=== PATIENT | male | born 1975 | race Hispanic/Latino ===

== ENCOUNTER 2021-12-04 17:24 | Emergency (ER) | payer BC, SELFPAY ==
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
[2021-12-04] MEDS: TETANUS,DIPHTHERIA,AC PERTUSSIS ADULT 0.5 ML (ADACEL) IM (18:03)
[2021-12-04 18:18] VITALS: BP 155/86; PULSE 85; RESP 20; TEMP 36.7; O2SAT 98
[2021-12-04 19:06] VITALS: BP 141/66; PULSE 79; RESP 20; TEMP 36.8; O2SAT 99
== END 2021-12-04 19:09 | disposition home or self-care (01) ==
PROVIDERS: Emergency Provider Emergency Medicine; PCP Emergency Medicine
DX: S01.01XA Laceration without foreign body of scalp, initial encounter (principal); S50.11XA Contusion of right forearm, initial encounter; V86.59XA Driver of other special all-terrain or other off-road motor vehicle injured in nontraffic accident, initial encounter
CPT/HCPCS: 12002; 12031; 70450; 70486; 73090; 90471; 90715; 99284

== ENCOUNTER 2022-05-02 10:08 | Emergency (ER) | payer BC, SELFPAY ==
--- NOTE | ~2022-05-02 | XR_ITS ---
EXAMINATION: XR ankle LT 2V DATE: 05/02/2022 10:38 INDICATION: Left ankle injury and swelling. TECHNIQUE: 4 views of left ankle were obtained. COMPARISON: None. FINDINGS: Bone alignment is normal. There is a fragment of ossification distal to lateral malleolus. 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 There is an enthesophyte at posterior aspect of calcaneal t uberosity. Ankle soft tissue swelling is noted. IMPRESSION: 1. Fragment of ossification distal to lateral malleolus, which may be an acute avulsion fracture or a finding from old injury. Reviewed, dictated and finalized at location A.
[2022-05-02 10:10] VITALS: BP 136/72; PULSE 88; RESP 16; TEMP 36.6; O2SAT 97
[2022-05-02 10:18] VITALS: BP 136/72; PULSE 88; RESP 16; TEMP 36.6; O2SAT 97
--- NOTE | 2022-05-02 10:58 | ED.LOWEXIN ---
HPI - Extremity Injury (Lower) General Chief Complaint: Extremity Injury, Lower Stated Complaint: fell on Left Ankle pain Time Seen by Provider: 05/02/22 10:10 Source: patient Mode of arrival: ambulatory Limitations: no limitations History of Present Illness HPI Narrative: this is a 38 year gentleman presents with left ankle pain with swelling in the lateral malleolus occurred earlier today causing pain and swelling has good range of motion with no numbness or tingling and rates his pain at about a 1 or 2. complaint: ankle injury Onset (ago): hour(s) Type of Injury: inversion Place: work Severity: mild Severity scale (1-10): 2 Relieving factors: nothing Exacerbating factors: nothing Related Data Home Medications Medication Instructions Recorded Confirmed lisinopril 20 mg tablet 20 mg PO DAILY 12/04/21 05/02/22 propranolol 60 mg capsule,24 60 cap PO DAILY 12/04/21 05/02/22 hr,extended release Allergies Allergy/AdvReac Type Severity Reaction Status Date / Time No Known Allergies Allergy Verified 05/02/22 10:17 Review of Systems Review of Systems: All systems reviewed & are unremarkable except as noted in HPI and below PMFSH Past Medical History Medical History Hypertension Palpitations Surgical History Surgical History No pertinent past surgical history Social History Social History Smoking status: Former smoker Alcohol intake: current Alcohol use details: occasional Substance use: never Exam Const: General: healthy appearing Nutritional Appearance: well nourished Orientation/consciousness: patient oriented x3 Limitations: no limitations HENMT: Head: normal to inspection Ears: external ears normal Face/Nose/Sinus: Normal external nose present Face and sinus: normal facial exam Eyes: Conjunctivae: conjunctivae normal Pupils: Equal, round and reactive pupils present EOM: EOMs intact bilaterally Neck: Neck: normal visual inspection Chest: Chest palpation & inspection: normal inspection of the chest Resp: Effort & Inspection: normal respiratory effort Cardio: Rate: regular rate Rhythm: regular rhythm GI: GI Palp: Yes Soft to palpation Back/Spine/Pelvis: Back: no CVA tenderness Skin: General skin exam: normal color Rashes: no rashes Wounds: no wounds Neuro: General: patient oriented x3, moves all extremities, no meningeal signs and no focal motor deficits Extrem: Other: Left lateral malleoli swelling and tenderness with palpation Psych: Mental Status: mental status grossly normal Affect: normal affect Course Course Emergency Course: patient having pain that he rates at a 1/2 declined any pain medicine at this time x-rays performed and reviewed with patient and Bebeto wrap applied. Vital Signs Vital signs: Vital Signs Temperature 36.6 C 05/02/22 10:10 Pulse Rate 88 05/02/22 10:10 Respiratory Rate 16 05/02/22 10:10 Blood Pressure 136/72 05/02/22 10:10 Pulse Oximetry 97 05/02/22 10:10 Oxygen Delivery Room Air 05/02/22 10:10 Temperature 36.6 C 05/02/22 10:18 Pulse Rate 88 05/02/22 10:18 Respiratory Rate 16 05/02/22 10:18 Blood Pressure 136/72 05/02/22 10:18 Pulse Oximetry 97 05/02/22 10:18 Oxygen Delivery Room Air 05/02/22 10:18 Critical Care Time Critical Care Time Critical Care Time: No Discharge Plan Discharge Clinical Impression: Ankle sprain and strain Patient Disposition: Home, Self-Care Condition: Stable Instructions: Antibiotic Form, Ankle Sprain (ED) Additional Instructions: continue Bebeto wrap can take Tylenol or Motrin as needed for pain and inflammation and follow-up primary care physician if symptoms persist or worsen. Prescriptions: No Action lisinopril 20 mg tablet 20 mg PO DAILY propranolol 60 mg ca
[2022-05-02 11:02] VITALS: BP 134/67; PULSE 71; RESP 16; TEMP 36.2; O2SAT 98
== END 2022-05-02 11:04 | disposition home or self-care (01) ==
PROVIDERS: Emergency Provider Emergency Medicine; PCP Emergency Medicine
DX: S93.402A Sprain of unspecified ligament of left ankle, initial encounter (principal)
CPT/HCPCS: 73600; 99283

== ENCOUNTER 2022-05-04 11:15 | Emergency (ER) | payer BC, SELFPAY ==
[2022-05-04 11:37] VITALS: BP 124/74; PULSE 78; RESP 18; TEMP 36.7; O2SAT 100
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
== END 2022-05-04 13:42 | disposition home or self-care (01) ==
PROVIDERS: Emergency Provider Nurse Practitioner; PCP Emergency Medicine
DX: S82.892A Other fracture of left lower leg, initial encounter for closed fracture (principal); X58.XXXA Exposure to other specified factors, initial encounter; I10 Essential (primary) hypertension; Z87.891 Personal history of nicotine dependence
CPT/HCPCS: 99213; G0463

== ENCOUNTER 2023-08-03 02:02 | Emergency (ER) | payer BC, SELFPAY ==
[2023-08-03 02:02] VITALS: BP 193/103; PULSE 89; RESP 18; TEMP 35.9; O2SAT 99
--- NOTE | 2023-08-03 02:06 | ED.GENADULT ---
HPI - General Adult General Chief complaint: Unspecified Stated complaint: high blood pressure Time Seen by Provider: 08/03/23 02:05 Source: patient Mode of arrival: ambulatory Limitations: no limitations History of Present Illness HPI narrative: 48-year-old male, ex-smoker with a history of hypertension, palpitation presents to the ER with -- elevated blood pressure. He noted his blood to fit to be as high as 190/100. The patient normally takes propanolol 60 long-acting twice a day. After he noted the high blood pressure he took a dose of lisinopril. Patient denies any chest pain or shortness of breath. Patient has been drinking alcohol on a regular basis. Associated symptoms: denies other symptoms Related Data Home Medications Medication Instructions Recorded Confirmed lisinopril 20 mg tablet 20 mg PO DAILY 12/04/21 08/03/23 propranolol 60 mg capsule,24 60 cap PO DAILY 12/04/21 08/03/23 hr,extended release Allergies Allergy/AdvReac Type Severity Reaction Status Date / Time No Known Allergies Allergy Verified 05/31/22 13:17 Review of Systems Review of Systems: All systems reviewed & are unremarkable except as noted in HPI and below Constitutional: Constitutional: Reports as per HPI and Reports no additional constitutional complaints Eyes: Eyes: Reports as per HPI and Reports no additional eye complaints ENT: Reports system reviewed and no additional complaints, except as documented and Reports as per HPI Cardiovascular: Cardiovascular: Reports as per HPI and Reports no additional cardiovascular complaints Respiratory: Respiratory: Reports as per HPI and Reports no additional respiratory complaints Gastrointestinal: Gastrointestinal: Reports as per HPI and Reports no additional gastrointestinal complaints Genitourinary: Genitourinary: Reports no additional male genitourinary complaints and Reports as per HPI Musculoskeletal: Musculoskeletal: Reports no additional musculoskeletal complaints and Reports as per HPI Integumentary/Breasts: Skin/Breast: Reports system reviewed and no additional complaints, except as docu and Reports as per HPI Neurologic: Reports system reviewed and no additional complaints, except as documented and Reports as per HPI Psychiatric: Psychiatric: Reports no additional psychiatric complaints, Reports as per HPI and Reports anxiety Endocrine: Endocrine: Reports no additional endocrine complaints and Reports as per HPI Hematologic/Lymphatic: Hematologic/Lymphatic: Reports no additional hematologic/lymphatic complaints and Reports as per HPI Allergic/Immunologic: Allergic/Immunologic: Reports no additional allergic/immunologic complaints and Reports as per HPI [facility] Past Medical History Medical History Avulsion fracture of ankle Hypertension Left ankle injury Left ankle pain Palpitations Surgical History Surgical History No pertinent past surgical history Social History Social History Smoking status: Former smoker Alcohol intake: current Alcohol use details: occasional Substance use: never Exam Narrative: Blood pressure is 193/103. Pulse is 89. Const: General: no acute distress Orientation/consciousness: patient oriented x3 Limitations: no limitations HENMT: Head: normal to inspection Ears: external ears normal Face/Nose/Sinus: Normal external nose present Face and sinus: normal facial exam Mouth: Yes Normal oral and palatal mucosa present Throat: posterior oropharynx normal Eyes: Conjunctivae: conjunctivae normal Pupils: Equal, round and reactive pupils present EOM: EOMs intact bilaterally Direct Ophthalmoscopy: no photophobia Neck: Neck: normal visual inspection, no lymphadenopathy and no meningeal signs Chest: Chest palpation & inspection: normal inspection of the molly
--- NOTE | 2023-08-03 02:15 | ECG_ITS ---
Measurements Intervals [place] Rate: 73 P: 52 CO: 179 QRS: 45 QRSD: 104 T: 38 QT: 381 QTc: 420 Interpretive Statements SINUS RHYTHM NORMAL ECG NO PREVIOUS ECG AVAILABLE FOR COMPARISON Electronically Signed On 08-03-2023 6:44:55 LITIGATION SECRETARY by Jason Gallardo D.O.
[2023-08-03 02:22] LABS: Basophils Absolute Auto 0.09 K/mm3 (0.00-0.10); Basophils Percent Auto 0.8 % (0.0-1.0); Eosinophils Absolute Auto 0.64 K/mm3 (0.02-0.50); Eosinophils Percent Auto 5.5 % (1.0-6.0); Hematocrit 41.8 % (40.0-54.0); Hemoglobin 14.1 g/dL (14.0-18.0); Immature Granulocyte Absolute 0.04 K/mm3 (0.00-0.00); Immature Granulocyte Percent A 0.3 % (0.0-0.0); Lymphocytes Percent Auto 29.1 % (18.0-42.0); Mean Corpuscular HGB Conc 33.7 g/dL (32.0-36.0); Mean Corpuscular Hemoglobin 30.5 pg (27.0-31.0); Mean Corpuscular Volume 90.5 fL (78.0-102.0); Mean Platelet Volume 9.2 fl (8.7-11.0); Monocytes Absolute Auto 1.23 K/mm3 (0.10-0.90); Monocytes Percent Auto 10.5 % (2.0-11.0); Neutrophils Absolute Auto 6.3 K/mm3 (1.7-7.2); Neutrophils Percent Auto 53.8 % (50.0-70.0); Platelet Count Result 275 K/mm3 (150-420); Red Blood Count 4.62 M/mm3 (4.70-6.10); Red Cell Distribution Width 11.9 % (11.6-14.4); White Blood Count 11.7 K/mm3 (4.8-10.8)
[2023-08-03] MEDS: cloNIDine HCL 0.2 MG TABLET PO (02:38)
[2023-08-03 02:41] LABS: Alanine Aminotransferase 48 U/L (16-63); Alkaline Phosphatase 72 U/L (46-116); Anion Gap 10 mmol/L (8-16); Aspartate Amino Transferase 22 U/L (15-37); Bilirubin,Total 0.6 mg/dL (0.00-1.00); Blood Urea Nitrogen 20 mg/dL (7-18); Calcium 9.2 mg/dL (8.5-10.1); Carbon Dioxide 29 mmol/L (21-32); Chloride 101 mmol/L (98-108); Estimated CRCL calculation 101 ml/min; Estimated Glomerular Filt Rate > 60; Glucose 130 mg/dL (70-99); Osmolality Calculated 294 mOsm/kg (285-295); Potassium 3.7 mmol/L (3.5-5.1); Sodium 140 mmol/L (136-145); Total Protein 7.7 g/dL (6.4-8.2); Troponin I 5.9 ng/L (0.00-60.4)
[2023-08-03 03:05] LABS: Appearance Urine Clear (Clear); Bilirubin Urine Negative (Negative); Blood Urine Negative (Negative); Color Urine Light Yellow (Yellow); Glucose Urine UA Negative (Negative); Ketones Urine Negative (Negative); Leukocyte Esterase Ur Negative LEU/UL (Negative); Nitrate Urine Negative (Negative); Protein Urine Negative (Negative); Specific Grav Ur 1.015 (1.010-1.020)
[2023-08-03 03:07] LABS: Add Urine Microscopic? NO
[2023-08-03 03:18] VITALS: BP 149/93; PULSE 85; RESP 18; O2SAT 98
[2023-08-03 03:36] VITALS: BP 141/74; PULSE 74; RESP 16; TEMP 36.8; O2SAT 99
== END 2023-08-03 03:38 | disposition home or self-care (01) ==
PROVIDERS: Emergency Provider Internal Medicine Critical Care Medicine
DX: I16.0 Hypertensive urgency (principal); Z79.899 Other long term (current) drug therapy; Z87.891 Personal history of nicotine dependence
CPT/HCPCS: 36415; 80053; 81003; 84443; 84484; 85025; 93005; 99284; A9270

== ENCOUNTER 2024-09-09 10:22 | Emergency (ER) | payer BC, SELFPAY ==
[2024-09-09 10:22] VITALS: BP 136/85; PULSE 74; RESP 18; TEMP 36.4; O2SAT 100
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
== END 2024-09-09 11:10 | disposition home or self-care (01) ==
PROVIDERS: Emergency Provider Emergency Medicine; PCP Emergency Medicine
DX: B02.8 Zoster with other complications (principal); I10 Essential (primary) hypertension; Z87.891 Personal history of nicotine dependence
CPT/HCPCS: 99283

== ENCOUNTER 2024-12-28 19:25 | Emergency (ER) | payer BC, SELFPAY ==
[2024-12-28] VITALS (11 sets, daily range): BP systolic 125–164; BP diastolic 73–83; PULSE 67–89; RESP 11–23; TEMP 36.9; O2SAT 96–99
--- NOTE | ~2024-12-28 | XR_ITS ---
XR chest 2V Ordering provider: Santino Barrientos MD History: 49 years Male with . chest pain . Comparison: None. FINDINGS: MEDIASTINUM: The cardiac silhouette is not enlarged. LUNGS: No infiltrates, effusions or pneumothorax. OTHER: No free air under the diaphragm. Degenerative changes of the spine. IMPRESSION: No acute cardiopulmonary pathology. Reviewed, dictated and finalized at location A.
--- NOTE | 2024-12-28 19:27 | ECG_ITS ---
Test Date: 2024-12-28 19:32:22 Measurements Intervals [place] Rate: 96 P: 38 IN: 182 QRS: 63 QRSD: 101 T: 46 QT: 337 QTc: 426 Interpretive Statements SINUS RHYTHM WITH OCCASIONAL VENTRICULAR PREMATURE COMPLEXES BORDERLINE ECG No previous ECG available for comparison Electronically Signed On 12-28-2024 20:20:38 CDT by Jason Gallardo D.O.
[2024-12-28 19:43] LABS: Basophils Absolute Auto 0.1 K/mm3 (0.0-0.1); Basophils Percent Auto 0.6 % (0.2-1.2); Eosinophils Absolute Auto 0.3 K/mm3 (0-0.3); Eosinophils Percent Auto 2.6 % (0-4.4); Hematocrit 42.4 % (42.0-52.0); Hemoglobin 14.5 g/dL (14.0-18.0); Immature Granulocyte Absolute 0.04 K/mm3 (0.00-0.031); Immature Granulocyte Percent A 0.4 % (0-0.5); Lymphocytes Absolute Auto 2.61 K/mm3 (0.9-3.2); Lymphocytes Percent Auto 23.3 % (18.3-44.2); Mean Corpuscular HGB Conc 34.2 g/dl (32-36); Mean Corpuscular Hemoglobin 30.2 pg (26-34); Mean Corpuscular Volume 88.3 fl (80-100); Mean Platelet Volume 9.1 fl (7.4-10.4); Monocytes Percent Auto 9.1 % (2.6-8.5); Neutrophils Absolute Auto 7.2 K/mm3 (1.3-6.7); Platelet Count Result 258 k/mm3 (150-375); Red Cell Distribution Width 11.6 % (11.5-14.5); White Blood Count 11.2 K/mm3 (4.5-10.0)
[2024-12-28 19:53] LABS: Alanine Aminotransferase 32 U/L (6-50); Alkaline Phosphatase 63 U/L (38-126); Anion Gap 10 mmol/L (4-12); Aspartate Amino Transferase 34 U/L (17-59); Bilirubin,Total 0.8 mg/dL (0.2-1.3); Blood Urea Nitrogen 24 mg/dL (9-20); Calcium 9.9 mg/dL (8.4-10.2); Carbon Dioxide 27 mmol/L (22-30); Chloride 102 mmol/L (98-107); Estimated CRCL calculation 80 ml/min; Estimated Glomerular Filt Rate > 60; Glucose 114 mg/dL (65-110); Lipase 122 U/L (23-300); Potassium 4.3 mmol/L (3.4-5.0); Sodium 139 mmol/L (137-145); Total Protein 8.3 g/dL (6.3-8.2)
[2024-12-28 20:03] LABS: Prothrombin Time 13.1 Seconds (11.1-14.7)
[2024-12-28 20:04] LABS: Partial Thromboplastin Time 26.9 Seconds (22.3-36.8)
[2024-12-28 20:05] LABS: Troponin I < 0.012 ng/mL (0.000-0.034)
--- NOTE | 2024-12-28 22:36 | ECG_ITS ---
Test Date: 2024-12-28 22:57:42 Measurements Intervals [place] Rate: 70 P: 19 WI: 193 QRS: 47 QRSD: 104 T: 39 QT: 380 QTc: 412 Interpretive Statements SINUS RHYTHM NORMAL ECG Compared to ECG 12/28/2024 19:32:22 Ventricular premature complex(es) no longer present Electronically Signed On 12-29-2024 07:07:42 CDT by Jason Gallardo D.O.
[2024-12-28] MEDS: ASPIRIN 81 MG CHEWABLE TABLET 324 MG PO (23:08)
[2024-12-28] MEDS: SODIUM CHLORIDE 0.9% IV 1,000 ML 999 ML IV CONT (23:08)
--- NOTE | 2024-12-28 23:18 | ED_ITS ---
HPI - General Adult General Chief complaint: Arrhythmia/Palpitations Stated complaint: palpations Time Seen by Provider: 12/28/24 22:39 History of Present Illness HPI narrative: Patient 49-year-old gentleman presents emergency department chief complaint of palpitations. 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 patient reports that he takes propanolol 60 mg reports that he drank some fluid and reports that he still having some PVCs every now and then the patient denies syncope denies chest pain Related Data Home Medications ?Medication ?Instructions ?Recorded ?Confirmed ?Last Taken ?Type lisinopril 20 mg tablet 20 mg PO DAILY 12/04/21 08/03/23 08/02/23 History propranolol 60 mg capsule,24 60 cap PO DAILY 12/04/21 08/03/23 08/02/23 History hr,extended release Allergies Allergy/AdvReac Type Severity Reaction Status Date / Time No Known Allergies Allergy Verified 09/09/24 10:32 Review of Systems 2 Review of Systems: A 10 system review of systems was completed on the patient and is negative except for what is stated in the HPI. Nursing and ancillary documentation was reviewed. [facility] Past Medical History Medical History Left ankle injury Left ankle pain Avulsion fracture of ankle Palpitations Hypertension Surgical History Surgical History No pertinent past surgical history Social History Social History Smoking status: Former smoker Alcohol intake: current Alcohol use details: occasional Substance use: never Exam 2 Narrative: GENERAL: Well-appearing, well-nourished, and in no acute distress. HEAD: Normocephalic, atraumatic. EYES: PERRLA and EOMI. ENT: Nares clear, no rhinorrhea or epistaxis. Mucous membranes moist. NECK: Supple. CHEST: Clear to auscultation. No respiratory distress. HEART: Regular rate and rhythm. No murmur heard. Normal peripheral pulses. ABDOMEN: Soft, nontender, nondistended, normal active bowel sounds. EXTREMITIES: Normal range of motion. No edema. SKIN: Warm, dry, no rash. NEURO: No focal deficits. Alert and oriented x3. PSYCH: Normal mood and affect. Course Vital Signs Vital signs: Vital Signs Temperature 36.9 C 12/28/24 19:43 Pulse Rate 89 12/28/24 19:43 Respiratory Rate 16 12/28/24 19:43 Blood Pressure 164/83 H 12/28/24 19:43 Pulse Oximetry 99 12/28/24 19:43 Oxygen Delivery Room Air 12/28/24 19:43 Temperature 36.9 C 12/28/24 19:43 Pulse Rate 69 12/28/24 23:45 Respiratory Rate 23 H 12/28/24 23:45 Blood Pressure 125/73 12/28/24 23:31 Pulse Oximetry 96 12/28/24 23:01 Oxygen Delivery Room Air 12/28/24 19:43 Medical Decision Making MDM Narrative Medical decision making narrative: Differential diagnosis includes electrolyte abnormality, ACS, dysrhythmia EKG showed a single PVC Laboratory studies were obtained showed white count 11.2 TSH was normal magnesium was 2.2 Potassium was within normal limits The patient will be discharged home to follow-up with primary care and Cardiology Vital Signs Vital Signs: Vital Signs Temperature 36.9 C 12/28/24 19:43 Pulse Rate 89 12/28/24 19:43 Respiratory Rate 16 12/28/24 19:43 Blood Pressure 164/83 H 12/28/24 19:43 Pulse Oximetry 99 12/28/24 19:43 Oxygen Delivery Room Air 12/28/24 19:43 Temperature 36.9 C 12/28/24 19:43 Pulse Rate 69 12/28/24 23:45 Respiratory Rate 23 H 12/28/24 23:45 Blood Pressure 125/73 12/28/24 23:31 Pulse Oximetry 96 12/28/24 23:01 Oxygen Delivery Room Air 12/28/24 19:43 Lab Data 12/28/24 19:36 12/28/24 19:36 Labs: Lab Results 12/28/24 12/28/24 Range/Units 19:36 23:07 WBC 11.2 H (4.5-10.0) K/mm3 RBC 4.80 (4.6-6.20) M/mm3 Hgb 14.5 (14.0-18.0) g/dL Hct 42.4 (42.0-52.0) % MCV 88.3 (80-100) fl MCH 30.2 (26-34) pg MCHC 34.2 (32-36) g/dl RDW 11.6 (11.5-14.5) % Plt Count 258 (150-375) k/mm3 MPV 9.1 (7.4-10.4) fl Immature Gran % (Auto) 0.4 (0-0.5) % Neut % (Auto) 64.0 (45.5-73.1) % Lymph % (Auto) 23.3 (18.3-44.2) % [place] % (Auto) 9.1 H (2.6-8.5) % Eos % (Auto) 2.6 (0-4.4) % Baso % (Auto) 0.6 (0.2-1.2) % Lymph # (Auto) 2.61 (0.9-3.2) K/mm3 [place] # (Auto) 1.0 H (0.1-0.6) K/mm3 Eos # (Auto) 0.3 (0-0.3) K/mm3 Baso # (Auto) 0.1 (0.0-0.1) K/mm3 Abs Immat Gran (auto) 0.04 H (0.00-0.031) K/mm3 Absolute Neuts (auto) 7.2 H (1.3-6.7) K/mm3 Absolute Nucleated RBC 0.000 (0.0-0.012) K/mm3 Nucleated RBC % 0.0 (0.0-0.2) % PT 13.1 (11.1-14.7) Seconds INR 1.0 APTT 26.9 (22.3-36.8) Seconds Sodium 139 (137-145) mmol/L Potassium 4.3 (3.4-5.0) mmol/L Chloride 102 (98-107) mmol/L Carbon Dioxide 27 (22-30) mmol/L Anion Gap 10 (4-12) mmol/L BUN 24 H (9-20) mg/dL Creatinine 1.03 (0.7-1.3) mg/dL Estim Creat Clear Calc 80 ml/min Estimated GFR > 60 (59 - ) Glucose 114 H (65-110) mg/dL Calcium 9.9 (8.4-10.2) mg/dL Magnesium 2.2 (1.6-2.3) mg/dL Total Bilirubin 0.8 (0.2-1.3) mg/dL AST 34 (17-59) U/L ALT 32 (6-50) U/L Alkaline Phosphatase 63 (38-126) U/L Troponin I < 0.012 < 0.012 (0.000-0.034) ng/mL Total Protein 8.3 H (6.3-8.2) g/dL Albumin 5.0 (3.5-5.1) g/dL Lipase 122 (23-300) U/L TSH (Reflex) 2.550 (0.465-4.68) uIU/mL Discharge Plan Discharge Clinical Impression: Palpitations, Ventricular premature beats Patient Disposition: Home Condition: Stable Instructions: Antibiotic Form, Heart Palpitations (ED) Patient Language: Citizen Of [place] Prescriptions: No Action lisinopril 20 mg tablet 20 mg PO DAILY propranolol 60 mg capsule,extended release 24 hr 60 cap PO DAILY valacyclovir [Valtrex] 1 gram tablet 1,000 mg PO TID 10 Days Qty: 30 0RF Follow-up/Referrals: Jason Gallardo DO [Physician] - Marquez Beebe MD [Primary Care Provider] - Time of Disposition: 00:11
[2024-12-28 23:25] LABS: Magnesium 2.2 mg/dL (1.6-2.3)
[2024-12-28 23:36] LABS: Troponin I < 0.012 ng/mL (0.000-0.034)
[2024-12-29] VITALS: PULSE 70; RESP 23
[2024-12-29 00:01] VITALS: BP 125/87; PULSE 72; RESP 31; O2SAT 97
== END 2024-12-29 00:21 | disposition home or self-care (01) ==
PROVIDERS: Emergency Provider Emergency Medicine; PCP Emergency Medicine
DX: R00.2 Palpitations (principal); I49.3 Ventricular premature depolarization; I10 Essential (primary) hypertension; Z87.891 Personal history of nicotine dependence
CPT/HCPCS: 36415; 71046; 80053; 83690; 83735; 84443; 84484; 85025; 85610; 85730; 93005; 96360; 99284; A9270; J7030